=== PATIENT | female | born 1950 | race Caucasian/White ===

== ENCOUNTER → 2016-09-07 | Outpatient (CLI) | payer MEDICARE ==
[~2016-09-07] MED LIST: ASPIRIN PO; GLUCOVANCE PO; GLUMETZA1000 MG/BO; HUMALOG100 U/ML SUBQ; LANTUS100 U/ML INJ; TRAMADOL HCL50 M1 PO
--- NOTE | ~2016-09-07 | HM ---
Unit #: [id number] #: [id number] Patient: BRADFORD TINOCO [id number] [address] [address] [id number] MR#: [id number] NAME: BRADFORD TINOCO. : 1950 SEX: F STUDY DATE/TIME: 09/13/2016 UNIT: [facility] ROOM: STUDY DESCRIPTION: Holter monitor Attending Physician: Nae Jimenez A.P.R.N. Referring Physician: Nae Jimenez A.P.R.N. Primary Care Physician: Nae Jimenez A.P.R.N. CARDIOLOGY REPORT EXAM Holter monitor DATE APPLIED 09/07/16 DATE SCANNED 09/12/16 ORDERED BY Nae Jimenez READ BY Dr. Angel Camejo INDICATION Irregular heartbeats. SUMMARY Patient was monitored for 24 hours. A total of 121,000 QRS complexes were analyzed. Average heart rate was 84 BPM. Rhythm was sinus. Minimum heart rate of 64 BPM occurred at approximately 2:00 a.m., maximum heart rate 144 BPM occurred at approximately 6:00 a.m. There were no pauses. The longest R-R interval occurred after a PVC. Supraventricular ectopy: 30 isolated beats, with no runs. Ventricular ectopy: 88 isolated beats, with no runs. Symptoms: None. Patient activated events: None. IMPRESSION 1. Normal Holter monitor without significant dysrhythmia. 2. Less than normal ventricular and atrial ectopic beats. Dictated by... Anjana Dailey/zo Unit #: [id number] #: [id number] Patient: BRADFORD TINOCO TD: 09/13/2016 11:26 JOB #: [id number] CARDIOLOGY REPORT Page 1 of 1 X Angel Camejo MD HOLTER MONITOR REPORT
== END | disposition home or self-care (01) ==
LOC: CECH 13:16
DX: I49.9 Cardiac arrhythmia, unspecified (principal); R07.9 Chest pain, unspecified
CPT/HCPCS: 93225; 93226; 93306